=== PATIENT | female | born 1990 | race African-American/Black ===

== ENCOUNTER 2017-02-28 11:45 | Emergency (ER) | payer MEDICAID ==
[~2017-02-28] VITALS: Ht 167.6 cm; Wt 80.0 kg
[~2017-02-28 11:45] MED LIST: FLUC200T PO
[2017-02-28 13:15] VITALS: BP 130/82
== END 2017-02-28 13:16 | disposition home or self-care (01) ==
LOC: ER 11:47
DX: J06.9 Acute upper respiratory infection, unspecified (principal); Z79.899 Other long term (current) drug therapy
CPT/HCPCS: 99281

== ENCOUNTER 2017-03-20 18:35 | Emergency (ER) | payer BC, MEDICAID ==
[~2017-03-20] VITALS: Ht 167.6 cm; Wt 81.4 kg
[2017-03-20] MEDS ORDERED: fluconazole 100mg tablet PO ONE (19:35)
[2017-03-20] MEDS ORDERED: fluconazole 150mg tablet PO ONE (19:40)
[2017-03-20] MEDS ORDERED: FLUC150T PO (19:58)
[2017-03-20 20:11] VITALS: BP 125/75
[2017-03-20 20:25] LABS: URINE HCG NEGATIVE (NEG)
== END 2017-03-20 20:12 | disposition home or self-care (01) ==
LOC: ER 18:36
DX: B37.3 Candidiasis of vulva and vagina (principal); E11.9 Type 2 diabetes mellitus without complications
CPT/HCPCS: 36415; 81025; 87491; 99284

== ENCOUNTER 2017-04-13 18:36 | Emergency (ER) | payer BC, MEDICAID ==
[~2017-04-13] VITALS: Ht 165.1 cm; Wt 81.8 kg
[2017-04-13] MEDS ORDERED: fluconazole 100mg tablet PO ONE (20:50)
[2017-04-13] MEDS ORDERED: FLUC150T66 PO ×2 (21:03→21:11)
[2017-04-13 21:14] VITALS: BP 123/69
[2017-04-13 21:17] LABS: URINE HCG NEGATIVE (NEG)
== END 2017-04-13 21:16 | disposition home or self-care (01) ==
LOC: ER 18:37
DX: R10.2 Pelvic and perineal pain (principal); L29.8 Other pruritus
CPT/HCPCS: 81025; 99283